=== PATIENT | male | born 1990 | race African-American/Black ===

== ENCOUNTER 2016-07-01 13:22 | Emergency (ER) | payer OTHER | END 2016-07-01 13:45 | disposition home or self-care (01) | LOC: ER 13:22 | PROC: 0CQ0XZZ Repair Upper Lip, External Approach (ICD-10-PCS; principal; 2016-07-01) | DX: S01.511A Laceration without foreign body of lip, initial encounter (principal); F17.200 Nicotine dependence, unspecified, uncomplicated; Y28.8XXA Contact with other sharp object, undetermined intent, initial encounter | CPT/HCPCS: 90471; 90714; 99283 ==